=== PATIENT | male | born 2005 | race African-American/Black ===

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

== ENCOUNTER 2023-07-25 12:09 | Emergency (ER) | payer OTHER ==
[~2023-07-25] VITALS: Ht 180.3 cm; Wt 90.7 kg
[~2023-07-25 12:09] MED LIST: IBUP-2213 PO
[2023-07-25 12:32] VITALS: BP 135/76; PULSE 74; RESP 18; TEMP 98; O2SAT 98
[2023-07-25 14:20] LABS: APPEARANCE,URINE CLEAR (CLEAR); BILIRUBIN,URINE NEGATIVE (NEGATIVE); BLOOD, URINE NEGATIVE (NEGATIVE); COLOR,URINE YELLOW (YELLOW); LEUKOCYTE ESTERASE ,URINE NEGATIVE (NEGATIVE); NITRITE, URINE NEGATIVE (NEGATIVE); PROTEIN,URINE TRACE (NEGATIVE); UGLUCOSE NEGATIVE (NEGATIVE); UROBILINOGEN,URINE 0.2 EU/dL (0.2 - 1)
== END 2023-07-25 14:44 | disposition home or self-care (01) ==
LOC: MED 12:09
DX: R10.31 Right lower quadrant pain (principal); Z79.899 Other long term (current) drug therapy
CPT/HCPCS: 81003; 87491; 99283

== ENCOUNTER 2024-04-10 00:45 | Emergency (ER) | payer OTHER ==
[~2024-04-10] VITALS: Ht 198.1 cm; Wt 172.4 kg
[2024-04-10 00:46] VITALS: BP 134/85; PULSE 96; RESP 16; TEMP 97.4; O2SAT 97
[2024-04-10] MEDS: LIDOCAINE MPF 1% 10 MG/ML VIAL INJ ONE (01:44)
[2024-04-10] MEDS: HYDROcodone/APAP 5/325 MG 1 TAB TAB PO ONE (01:46)
[2024-04-10] MEDS ORDERED: IBUP-2218 PO (03:11)
[2024-04-10] MEDS ORDERED: [UNRECOGNIZED DRUG - CODE] PO (03:11)
== END 2024-04-10 03:45 | disposition home or self-care (01) ==
LOC: MED 00:45
DX: L03.317 Cellulitis of buttock (principal); L02.31 Cutaneous abscess of buttock; Z79.1 Long term (current) use of non-steroidal anti-inflammatories (NSAID); Z79.2 Long term (current) use of antibiotics
CPT/HCPCS: 10060; 99284; J2001